=== PATIENT | female | born 1955 | race Caucasian/White ===

== ENCOUNTER 2017-08-06 09:50 | Outpatient (CLI) | payer MEDICARE, MEDICAID ==
--- NOTE | 2017-08-06 16:02 | EKG ---
Test Reason : SITTING UP IN CHAIR Blood Pressure : / mmHG Vent. Rate : 110 BPM Atrial Rate : 110 BPM P-R Int : 174 ms QRS Dur : 146 ms QT Int : 360 ms P-R-T Axes : 073 047 032 degrees QTc Int : 487 ms Sinus tachycardia Right bundle branch block Inferior infarct , age undetermined cannot be excluded Abnormal ECG Confirmed by JAMIE GUAN ([id number]) on 08/06/2017 4:02:02 PM Referred By: CAITLIN LICONA Confirmed By:JAMIE GUAN
== END 2017-08-06 09:51 | disposition home or self-care (01) ==
LOC: BICMAMMO 09:50
PROVIDERS: ATTEND Family Medicine
DX: Z12.31 Encounter for screening mammogram for malignant neoplasm of breast (principal)
CPT/HCPCS: 77063; 77067; 93005; 93010

== ENCOUNTER 2018-12-10 13:36 | Outpatient (CLI) | payer MEDICARE, MEDICAID ==
--- NOTE | 2018-12-10 14:09 | RAD ---
EXAM: Two views chest PROVIDED CLINICAL HISTORY: Dyspnea COMPARISON: 10/18/2017. FINDINGS: Cardiac silhouette and pulmonary vasculature are within normal limits. Linear densities are again se en in the region of the right middle lobe and lingula as well as in the right lower lobe likely likely related to areas of scarring. The nodular prominence of the hilar regions is overall similar t o prior studies on 01/06/2015 and 07/19/2015. There is been no other interval change. IMPRESSION: 1. Stable nodular prominence of the hilar regions bilaterally with similar appearance compared to julien dies in 2015 and 2014. 2. Stable areas of scarring within the lingula and right middle lobe as well as right lower lobe. 3. No acute cardiopulmonary process..
== END 2018-12-10 13:37 | disposition home or self-care (01) ==
LOC: RAD 13:36
PROVIDERS: ATTEND Internal Medicine Pulmonary Disease
DX: R06.00 Dyspnea, unspecified (principal); R91.1 Solitary pulmonary nodule; J98.4 Other disorders of lung
CPT/HCPCS: 71046

== ENCOUNTER 2019-04-12 16:16 | Inpatient (IN) | payer MEDICARE, MEDICAID ==
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
[2019-04-12] MEDS ORDERED: Zolpidem Tartrate 5 MG TAB PO PRN (18:41)
[2019-04-12] MEDS ORDERED: Sodium Chloride 0.65% Nasal 44 ML BOT EA NARE PRN (18:41)
[2019-04-12] MEDS ORDERED: hydrALAZINE 20 MG/ML VIAL SLOW IVP PRN (18:41)
[2019-04-12] MEDS ORDERED: Artificial Tears 18 DROP/0.9 ML EA EYE PRN (18:41)
[2019-04-12] MEDS ORDERED: HYDROcodone/Acetaminophen 5/325 mg Tablet PO PRN (18:41)
[2019-04-12] MEDS ORDERED: Loratadine 10 MG TAB PO PRN (18:41)
[2019-04-12] MEDS ORDERED: Bisacodyl 10 MG SUPP PR PRN (18:41)
[2019-04-12] MEDS ORDERED: Loperamide HCl 2 MG CAP PO PRN (18:41)
[2019-04-12] MEDS ORDERED: Calcium Carbonate 500 MG ChewTAB PO PRN (18:41)
[2019-04-12] MEDS ORDERED: Senokot S 8.6-50 MG TAB PO PRN (18:41)
[2019-04-12] MEDS ORDERED: Cepastat Lozenges 1 LOZ PO PRN (18:41)
[2019-04-12] MEDS ORDERED: cloNIDine 0.1 MG TAB PO PRN (18:41)
[2019-04-12] MEDS ORDERED: Metoclopramide HCl 10 MG/2 ML VIAL IVP PRN (18:41)
[2019-04-12 19:11] VITALS: BMI 41.6
[2019-04-12] MEDS ORDERED: Mometasone/Formoterol 120 PUFF INHALER INH SCH (19:15)
[2019-04-12] MEDS: Mometasone/Formoterol 120 PUFF INHALER INH SCH (20:12)
[2019-04-12] MEDS: guaiFENesin ER 600 MG TAB PO SCH (20:49)
[2019-04-12] MEDS: Azithromycin 500 MG in Sodium Chloride 0.9% 250 ML 250 ML IVPB SCH (20:49)
[2019-04-12] MEDS: ALPRAZolam 1 MG TAB PO PRN (20:57)
[2019-04-13] MEDS: Diabetic Tussin 200 MG/10 ML UDCUP PO PRN (06:17)
[2019-04-13] MEDS: Mometasone/Formoterol 120 PUFF INHALER INH SCH ×2 (06:53→18:54)
[2019-04-13 07:14] LABS: #Monocytes 0.9 thou/uL (0.11-0.59); #Neutrophils 11.6 thou/uL (1.40-6.50); %Eosinophils 0.2 % (0.0-10.0); %Lymphocytes 7.2 % (21.0-51.0); %Monocytes 6.9 % (0.0-10.0); %Neutrophils 85.7 % (42.0-75.0); Hemoglobin 11.2 g/dL (12.0-16.0); Mean Corpuscular HGB CONC 31.2 g/dL (32.0-36.0); Mean Corpuscular Hemoglobin 25.6 pg (27.0-31.0); Mean Platelet Volume 8.6 fL (7.4-10.4); Platelet Count 173 thou/uL (130-400); RBC Distribution Width 14.3 % (11.5-14.5); Red Blood Cell (RBC) Count 4.36 mill/uL (4.20-5.40); White Blood Cell (WBC) Count 13.6 thou/uL (4.8-10.8)
[2019-04-13 07:37] LABS: ALT (SGPT) 23 U/L (8-55); AST (SGOT) 15 U/L (5-34); Albumin 3.9 g/dL (3.4-4.8); Alkaline Phosphatase 97 U/L (40-110); Anion Gap 12 mmol/L (10-20); BUN (Urea Nitrogen) 18 mg/dL (9.8-20.1); Bilirubin, Total 0.3 mg/dL (0.2-1.2); Calc. Creatinine Clearance 111 mL/min (70-130); Calcium 9.2 mg/dL (7.8-10.44); Carbon Dioxide 30 mmol/L (23-31); Chloride 100 mmol/L (98-107); Estimated GFR-MDRD 67; Globulin 3.6 g/dL (2.4-3.5); Glucose 217 mg/dL (80-115); Potassium 4.2 mmol/L (3.5-5.1); Protein, Total 7.5 g/dL (6.0-8.3); Sodium 138 mmol/L (136-145)
[2019-04-13] MEDS: Enoxaparin Sodium 40 MG/0.4 ML SYRINGE SC SCH (08:27)
[2019-04-13] MEDS: Spironolactone 25 MG TAB PO SCH (08:28)
[2019-04-13] MEDS: Allopurinol 100 MG TAB PO SCH (08:28)
[2019-04-13] MEDS: guaiFENesin ER 600 MG TAB PO SCH ×2 (08:28→19:53)
[2019-04-13] MEDS ORDERED: ROFLUMILAST PO SCH ×2 (09:00)
[2019-04-13] MEDS ORDERED: FLU VACC TS2019-20(65YR UP)/PF 180 MCG/0.5 ML SYRINGE IM ONE (09:00)
--- NOTE | 2019-04-13 11:20 | PDOC.HOSPP ---
- Subjective Encounter Date: 04/13/19 Encounter Time: 09:15 Subjective: Patient seen and examined. No new complaints. No overnight events pt is slightly better than yesterday, but she does not feel her baseline - Objective Vital Signs & Weight: Vital Signs (12 hours) Temp Pulse Resp BP Pulse Ox 04/13/19 10:15 85 18 04/13/19 09:00 94/72 04/13/19 08:10 98.7 F 102 H 20 76/64 L 95 04/13/19 08:00 95 04/13/19 06:51 98 16 98 04/13/19 04:00 98.6 F 94 16 102/65 98 04/13/19 02:19 95 04/13/19 00:00 98.8 F 98 16 99/65 97 Weight Weight 235 lb I&O: 04/12/19 04/13/19 04/14/19 06:59 06:59 06:59 Intake Total 240 Balance 240 Result Diagrams: 04/13/19 06:32 04/13/19 06:32 Hospitalist ROS - Review of Systems Constitutional: denies: fever, chills, sweats, weakness, malaise, other Eyes: denies: pain, vision change, conjunctivae inflammation, eyelid inflammation, redness, other ENT: denies: ear pain, ear discharge, nose pain, nose discharge, nose congestion , mouth pain, mouth swelling, throat pain, throat swelling, other Respiratory: reports: cough, shortness of breath, SOB with excertion. denies: dry, hemoptysis, pleuritic pain, sputum, wheezing, other Cardiovascular: denies: chest pain, palpitations, orthopnea, paroxysmal noc. dyspnea, edema, light headedness, other Gastrointestinal: denies: nausea, vomiting, abdominal pain, diarrhea, constipation, melena, hematochezia, other Genitourinary: denies: dysuria, frequency, incontinence, hematuria, retention, other Musculoskeletal: denies: neck pain, shoulder pain, arm pain, back pain, hand pain, leg pain, foot pain, other Skin: denies: rash, lesions, zenon, bruising, other - Medication Medications: Active Medications Generic Name Dose Route Start Last Admin Trade Name Freq PRN Reason Stop Dose Admin Albuterol/Ipratropium 3 ml 04/12/19 22:30 04/13/19 10:15 Duoneb NEB 3 ml [id number] AXEL Administration Allopurinol 100 mg 04/13/19 09:00 04/13/19 08:28 Zyloprim PO 100 mg DAILY AXEL Administration Alprazolam 1 mg 04/12/19 18:41 04/12/19 20:57 Xanax PO 1 mg TIDPRN PRN Administration Anxiety/Restlessness/Sleep Cholecalciferol 2,000 units 04/13/19 09:00 04/13/19 08:28 Vitamin D3 PO 2,000 units DAILY AXEL Administration Enoxaparin Sodium 40 mg 04/13/19 09:00 04/13/19 08:27 Lovenox SC 40 mg 0900 AXEL Administration Guaifenesin 600 mg 04/12/19 21:00 04/13/19 08:28 Mucinex PO 600 mg Q12HR AXEL Administration Guaifenesin 200 mg 04/12/19 18:41 04/13/19 06:17 Robitussin Sf PO 200 mg Q4H PRN Administration Cough Azithromycin 500 mg/ Sodium 250 mls @ 250 mls/hr 04/12/19 20:00 04/12/19 20: 49 Chloride IVPB 250 mls 2000 AXEL Administration Mometasone Furoate/Formoterol Fumar 2 puff 04/13/19 06:30 04/13/19 06:53 Dulera 200 Mcg/5 Mcg Inhaler INH 2 puff BID-RT AXEL Administration Pantoprazole Sodium 40 mg 04/13/19 09:00 04/13/19 08:28 Protonix PO 40 mg DAILY AXEL Administration Spironolactone 50 mg 04/13/19 08:00 04/13/19 08:28 Aldactone PO 50 mg QAM-WM AXEL Administration - Exam General Appearance: NAD, awake alert Eye: PERRL, anicteric sclera ENT: normocephalic atraumatic, no oropharyngeal lesions Neck: supple, symmetric, no JVD, no thyromegaly Heart: RRR, no murmur, no gallops, no rubs, normal peripheral pulses Respiratory: wheezes Respiratory - other findings: bilateral reduced air entry Gastrointestinal: soft, non-tender, non-distended, normal bowel sounds, no palpable masses, no hepatomegaly, no guarding, no rigidity Gastrointestinal - other findings: obesity Extremities: no cyanosis, no clubbing, no edema Skin: normal turgor, no lesions, no rashes Neurological: cranial nerve grossly intact, no focal deficits Musculoskeletal: normal tone, normal strength Psychiatric: normal affect, normal behavior Hosp A/P (1) COPD exacerbation Code(s): J44.1 - CHRONIC OBSTRUCTIVE PULMONARY DISEASE W (ACUTE) EXACERBATION Status: Acute (2) Acute and chronic respiratory failure with hypoxia Code(s): J96.21 - ACUTE AND CHRONIC RESPIRATORY FAILURE WITH HYPOXIA Status: Acute (3) Morbid obesity with BMI of 40.0-44.9, adult Code(s): E66.01 - MORBID (SEVERE) OBESITY DUE TO EXCESS CALORIES; Z68.41 - BODY MASS INDEX (BMI) 40.0-44.9, ADULT Status: Acute (4) Gout Code(s): M10.9 - GOUT, UNSPECIFIED Status: Acute (5) Anxiety and depression Code(s): F41.9 - ANXIETY DISORDER, UNSPECIFIED; F32.9 - MAJOR DEPRESSIVE DISORDER, SINGLE EPISODE, UNSPECIFIED Status: Acute - Plan old records reviewed/req, continue antibiotics, respiratory therapy 04/13/19 pt wants her regular diet continue duoneb, dulera, solumedrol, mucinex, azithromycin Medication reviewed as above, symptomatic treatment
[2019-04-13 11:21] LABS: Bilirubin Negative (Negative); Blood, Urine Negative (Negative); Clarity Clear (Clear); Glucose, Urine (Dipstick) 100 mg/dL (Negative); Leukocyte Negative Leu/uL (Negative); Nitrite Negative (Negative); Protein, Urine (Dipstick) 20 mg/dL (Neg-Trace); RBC/HPF 0-3 HPF (0-3); Squamous Epithelial 0-3 HPF (0-3); Urobilinogen Normal mg/dL (Less than 2); WBC/HPF 0-3 HPF (0-3)
[2019-04-13 11:22] LABS: Bacteria/HPF 1+ HPF (None Seen)
[2019-04-13] MEDS: Azithromycin 500 MG in Sodium Chloride 0.9% 250 ML 250 ML IVPB SCH (19:52)
[2019-04-14] MEDS: Diabetic Tussin 200 MG/10 ML UDCUP PO PRN ×2 (01:31→17:25)
[2019-04-14] MEDS: Acetaminophen 325 MG TAB PO PRN (01:31)
[2019-04-14] MEDS: Mometasone/Formoterol 120 PUFF INHALER INH SCH ×2 (06:27→19:01)
[2019-04-14] MEDS: Enoxaparin Sodium 40 MG/0.4 ML SYRINGE SC SCH (08:19)
[2019-04-14] MEDS: guaiFENesin ER 600 MG TAB PO SCH ×2 (08:20→19:54)
[2019-04-14] MEDS: Allopurinol 100 MG TAB PO SCH (08:20)
[2019-04-14] MEDS: Spironolactone 25 MG TAB PO SCH (08:20)
--- NOTE | 2019-04-14 11:55 | PDOC.HOSPP ---
- Subjective Encounter Date: 04/14/19 Encounter Time: 10:10 Subjective: Patient seen and examined. No new complaints. No overnight events - Objective Vital Signs & Weight: Vital Signs (12 hours) Temp Pulse Resp BP Pulse Ox Pulse Ox Pulse Ox 04/14/19 10:34 95 88 L 04/14/19 09:59 89 18 96 04/14/19 08:00 94 L 04/14/19 07:54 98.5 F 90 22 H 95/65 94 L 04/14/19 06:24 80 18 97 04/14/19 04:00 98.3 F 85 19 98/66 97 04/14/19 00:00 98.5 F 94 19 104/69 93 L Pulse Ox 04/14/19 10:34 93 L 04/14/19 09:59 04/14/19 08:00 04/14/19 07:54 04/14/19 06:24 04/14/19 04:00 04/14/19 00:00 Weight Admit Weight 235 lb Weight 235 lb I&O: 04/13/19 04/14/19 04/15/19 06:59 06:59 06:59 Intake Total 840 360 Balance 840 360 Result Diagrams: 04/13/19 06:32 04/13/19 06:32 Hospitalist ROS - Review of Systems Eyes: denies: pain, vision change, conjunctivae inflammation, eyelid inflammation, redness, other ENT: denies: ear pain, ear discharge, nose pain, nose discharge, nose congestion , mouth pain, mouth swelling, throat pain, throat swelling, other Respiratory: reports: cough, shortness of breath. denies: dry, hemoptysis, SOB with excertion, pleuritic pain, sputum, wheezing, other Cardiovascular: denies: chest pain, palpitations, orthopnea, paroxysmal noc. dyspnea, edema, light headedness, other Gastrointestinal: denies: nausea, vomiting, abdominal pain, diarrhea, constipation, melena, hematochezia, other Genitourinary: denies: dysuria, frequency, incontinence, hematuria, retention, other Musculoskeletal: denies: neck pain, shoulder pain, arm pain, back pain, hand pain, leg pain, foot pain, other Skin: reports: rash. denies: lesions, zenon, bruising, other - Medication Medications: Active Medications Generic Name Dose Route Start Last Admin Trade Name Freq PRN Reason Stop Dose Admin Acetaminophen 650 mg 04/12/19 18:41 04/14/19 01:31 Tylenol PO 650 mg Q4H PRN Administration Headache/Fever/Mild Pain (1-3) Albuterol/Ipratropium 3 ml 04/12/19 22:30 04/14/19 09:59 Duoneb NEB 3 ml [id number] AXEL Administration Allopurinol 100 mg 04/13/19 09:00 04/14/19 08:20 Zyloprim PO 100 mg DAILY AXEL Administration Alprazolam 1 mg 04/12/19 18:41 04/12/19 20:57 Xanax PO 1 mg TIDPRN PRN Administration Anxiety/Restlessness/Sleep Cholecalciferol 2,000 units 04/13/19 09:00 04/14/19 08:19 Vitamin D3 PO 2,000 units DAILY AXEL Administration Enoxaparin Sodium 40 mg 04/13/19 09:00 04/14/19 08:19 Lovenox SC 40 mg 0900 AXEL Administration Guaifenesin 600 mg 04/12/19 21:00 04/14/19 08:20 Mucinex PO 600 mg Q12HR AXEL Administration Guaifenesin 200 mg 04/12/19 18:41 04/14/19 01:31 Robitussin Sf PO 200 mg Q4H PRN Administration Cough Azithromycin 500 mg/ Sodium 250 mls @ 250 mls/hr 04/12/19 20:00 04/13/19 19: 52 Chloride IVPB 250 mls 2000 AXEL Administration Metoclopramide HCl 5 mg 04/12/19 18:41 04/13/19 20:19 Reglan IVP 5 mg Q4H PRN Administration Nausea Mometasone Furoate/Formoterol Fumar 2 puff 04/13/19 06:30 04/14/19 06:27 Dulera 200 Mcg/5 Mcg Inhaler INH 2 puff BID-RT AXEL Administration Pantoprazole Sodium 40 mg 04/13/19 09:00 04/14/19 08:20 Protonix PO 40 mg DAILY AXEL Administration Spironolactone 50 mg 04/13/19 08:00 04/14/19 08:20 Aldactone PO 50 mg QAM-WM AXEL Administration - Exam General Appearance: NAD, awake alert Eye: PERRL, anicteric sclera ENT: normocephalic atraumatic, no oropharyngeal lesions Neck: supple, symmetric, no JVD Heart: RRR, no murmur, no gallops Respiratory: no rales, wheezes Gastrointestinal: soft, non-tender, non-distended, normal bowel sounds, no palpable masses Extremities: no cyanosis, no clubbing Skin: normal turgor, no lesions Skin - other findings: tinea rash+ Neurological: no focal deficits Musculoskeletal: normal tone, normal strength Psychiatric: normal affect, normal behavior Hosp A/P (1) COPD exacerbation Code(s): J44.1 - CHRONIC OBSTRUCTIVE PULMONARY DISEASE W (ACUTE) EXACERBATION Status: Acute (2) Acute and chronic respiratory failure with hypoxia Code(s): J96.21 - ACUTE AND CHRONIC RESPIRATORY FAILURE WITH HYPOXIA Status: Acute (3) Morbid obesity with BMI of 40.0-44.9, adult Code(s): E66.01 - MORBID (SEVERE) OBESITY DUE TO EXCESS CALORIES; Z68.41 - BODY MASS INDEX (BMI) 40.0-44.9, ADULT Status: Acute (4) Gout Code(s): M10.9 - GOUT, UNSPECIFIED Status: Acute (5) Anxiety and depression Code(s): F41.9 - ANXIETY DISORDER, UNSPECIFIED; F32.9 - MAJOR DEPRESSIVE DISORDER, SINGLE EPISODE, UNSPECIFIED Status: Acute - Plan old records reviewed/req, continue antibiotics, respiratory therapy 04/13/19 pt wants her regular diet continue duoneb, dulera, solumedrol, mucinex, azithromycin Medication reviewed as above, symptomatic treatment 04/14/19 add nystatin for skin rash otherwise continue same treatment not stable for discharge and not upto her base line medication reviewed as above symptomatic treatment
[2019-04-14] MEDS: methylPREDNISolone Sod Succ 40 MG VIAL IVP SCH ×2 (12:17→19:54)
[2019-04-14] MEDS: Azithromycin 500 MG in Sodium Chloride 0.9% 250 ML 250 ML IVPB SCH (19:53)
[2019-04-14] MEDS: Nystatin Powder 15 GM BOT TOP SCH (19:54)
[2019-04-14] MEDS: ALPRAZolam 1 MG TAB PO PRN (21:35)
[2019-04-15] MEDS: methylPREDNISolone Sod Succ 40 MG VIAL IVP SCH (04:07)
[2019-04-15] MEDS: Mometasone/Formoterol 120 PUFF INHALER INH SCH ×2 (06:58→18:51)
[2019-04-15] MEDS: Enoxaparin Sodium 40 MG/0.4 ML SYRINGE SC SCH (08:42)
[2019-04-15] MEDS: Allopurinol 100 MG TAB PO SCH (08:43)
[2019-04-15] MEDS: Spironolactone 25 MG TAB PO SCH (08:43)
[2019-04-15] MEDS: guaiFENesin ER 600 MG TAB PO SCH ×2 (08:45→20:41)
[2019-04-15] MEDS: Nystatin Powder 15 GM BOT TOP SCH ×2 (08:46→20:41)
--- NOTE | 2019-04-15 11:06 | PDOC.HOSPP ---
- Subjective Encounter Date: 04/15/19 Encounter Time: 11:04 Subjective: much less dyspnea, near ready to go home - Objective Vital Signs & Weight: Vital Signs (12 hours) Temp Pulse Resp BP BP Pulse Ox 04/15/19 10:34 99 22 H 93 L 04/15/19 07:52 97.4 F L 89 22 H 124/78 94 L 04/15/19 06:50 93 18 95 04/15/19 04:15 98.2 F 93 22 H 117/74 95 04/15/19 01:40 96 18 04/15/19 01:01 98.6 F 96 19 98/63 94 L Weight Admit Weight 235 lb Weight 235 lb I&O: 04/14/19 04/15/19 04/16/19 06:59 06:59 06:59 Intake Total 840 1080 360 Balance 840 1080 360 Result Diagrams: 04/13/19 06:32 04/13/19 06:32 Hospitalist ROS - Medication Medications: Active Medications Generic Name Dose Route Start Last Admin Trade Name Freq PRN Reason Stop Dose Admin Acetaminophen 650 mg 04/12/19 18:41 04/14/19 01:31 Tylenol PO 650 mg Q4H PRN Administration Headache/Fever/Mild Pain (1-3) Albuterol/Ipratropium 3 ml 04/12/19 22:30 04/15/19 10:34 Duoneb NEB 3 ml [id number] AXEL Administration Allopurinol 100 mg 04/13/19 09:00 04/15/19 08:43 Zyloprim PO 100 mg DAILY AXEL Administration Alprazolam 1 mg 04/12/19 18:41 04/14/19 21:35 Xanax PO 1 mg TIDPRN PRN Administration Anxiety/Restlessness/Sleep Cholecalciferol 2,000 units 04/13/19 09:00 04/15/19 08:43 Vitamin D3 PO 2,000 units DAILY AXEL Administration Enoxaparin Sodium 40 mg 04/13/19 09:00 04/15/19 08:42 Lovenox SC 40 mg 0900 AXEL Administration Guaifenesin 600 mg 04/12/19 21:00 04/15/19 08:45 Mucinex PO 600 mg Q12HR AXEL Administration Guaifenesin 200 mg 04/12/19 18:41 04/14/19 17:25 Robitussin Sf PO 200 mg Q4H PRN Administration Cough Metoclopramide HCl 5 mg 04/12/19 18:41 04/13/19 20:19 Reglan IVP 5 mg Q4H PRN Administration Nausea Mometasone Furoate/Formoterol Fumar 2 puff 04/13/19 06:30 04/15/19 06:58 Dulera 200 Mcg/5 Mcg Inhaler INH 2 puff BID-RT AXEL Administration Nystatin 0 gm 04/14/19 21:00 04/15/19 08:46 Mycostatin Powder TOP 1 applic BID AXEL Administration Pantoprazole Sodium 40 mg 04/13/19 09:00 04/15/19 08:45 Protonix PO 40 mg DAILY AXEL Administration Spironolactone 50 mg 04/13/19 08:00 04/15/19 08:43 Aldactone PO 50 mg QAM-WM AXEL Administration - Exam Neck: no JVD Heart: RRR, no murmur Respiratory: CTAB Gastrointestinal: soft, normal bowel sounds Extremities: no edema Hosp A/P (1) Acute and chronic respiratory failure with hypoxia Code(s): J96.21 - ACUTE AND CHRONIC RESPIRATORY FAILURE WITH HYPOXIA Status: Acute (2) COPD exacerbation Code(s): J44.1 - CHRONIC OBSTRUCTIVE PULMONARY DISEASE W (ACUTE) EXACERBATION Status: Acute (3) HTN (hypertension) Code(s): I10 - ESSENTIAL (PRIMARY) HYPERTENSION Status: Chronic Qualifiers: Hypertension type: essential hypertension Qualified Code(s): I10 - Essential (primary) hypertension (4) Dyslipidemia Code(s): E78.5 - HYPERLIPIDEMIA, UNSPECIFIED Status: Chronic - Plan deescalate steroids to po deescalate antibx to po probable home in AM with HH, outpt pulmonary rehab as outpt, already arranged
[2019-04-15] MEDS: Acetaminophen 325 MG TAB PO PRN (19:09)
[2019-04-15] MEDS ORDERED: Azithromycin 250 MG TAB PO SCH (21:00)
[2019-04-15] MEDS: ALPRAZolam 1 MG TAB PO PRN (23:05)
[2019-04-15] MEDS: Diabetic Tussin 200 MG/10 ML UDCUP PO PRN (23:05)
[2019-04-16] MEDS: Mometasone/Formoterol 120 PUFF INHALER INH SCH (07:11)
[2019-04-16 07:21] VITALS: BP 116/77; TEMP 97.3
[2019-04-16] MEDS ORDERED: predniSONE 20 MG TAB PO SCH (08:00)
[2019-04-16] MEDS: Allopurinol 100 MG TAB PO SCH (08:22)
[2019-04-16] MEDS: Enoxaparin Sodium 40 MG/0.4 ML SYRINGE SC SCH (08:24)
[2019-04-16] MEDS: guaiFENesin ER 600 MG TAB PO SCH (08:24)
[2019-04-16] MEDS: Spironolactone 25 MG TAB PO SCH (08:24)
[2019-04-16] MEDS: Nystatin Powder 15 GM BOT TOP SCH (08:25)
[2019-04-16] MEDS ORDERED: Azithromycin 250 MG TAB PO SCH (09:00)
--- NOTE | 2019-04-16 20:48 | DIS ---
DATE OF ADMISSION: 04/12/2019 DATE OF DISCHARGE: 04/16/2019 PRIMARY CARE PROVIDER: Dr. Sixto Bedolla. DISCHARGE DIAGNOSES: 1. Acute on chronic hypoxic respiratory failure. 2. Chronic obstructive pulmonary disease exacerbation. CONDITION OF PATIENT ON THE DAY OF DISCHARGE: Stable. I assessed Ms. Holt on the day of discharge. She denies any chest pain or shortness of breath. Vital signs are stable. S1 and S2 are heard, regular. Lungs are clear to auscultation bilaterally. HOSPITAL COURSE: Ms. Holt is a pleasant 63-year-old lady, who was admitted to [facility] on 04/12/2019, for acute on chronic hypoxic respiratory failure secondary to chronic obstructive pulmonary disease exacerbation. Please refer to Dr. French's history and physical note dated 04/12/2019, for further details. She was treated with oxygen, steroids, antibiotics, and bronchodilators. She improved clinically. She is being discharged home in a stable condition. POST-DISCHARGE FOLLOWUP: The patient is advised to follow up with her primary care provider in 3 to 5 days' time. DISCHARGE MEDICATIONS: In addition to her home medications as dictated by Dr. French in his history and physical note dated 04/12/2019, she is being discharged home on oral steroid taper and azithromycin 250 mg daily for 5 more days. Many thanks for allowing me to participate in your patient's care. Please feel free to contact me with any questions or concerns. DISCHARGE DESTINATION: Home. TIME SPENT: Total amount of time spent coordinating this discharge: 32 minutes. Job ID: [id number]
== END 2019-04-16 15:52 | disposition home or self-care (01) | DRG 189 ==
LOC: ERS 16:16 → T4-B 17:11
PROVIDERS: ADMIT Internal Medicine; ATTEND Internal Medicine
DX: J96.21 Acute and chronic respiratory failure with hypoxia (principal); Z68.41 Body mass index [BMI] 40.0-44.9, adult; J44.1 Chronic obstructive pulmonary disease with (acute) exacerbation; I10 Essential (primary) hypertension; M10.9 Gout, unspecified; K21.9 Gastro-esophageal reflux disease without esophagitis; F41.9 Anxiety disorder, unspecified; F32.9 Major depressive disorder, single episode, unspecified; E66.01 Morbid (severe) obesity due to excess calories; Z99.81 Dependence on supplemental oxygen; Z90.49 Acquired absence of other specified parts of digestive tract; Z79.899 Other long term (current) drug therapy
CPT/HCPCS: 36415; 80053; 81001; 85025; 90471; 90662; 93005; 94640; 94664; 94760; G0008; J0456; J1650; J2765; J2920; J7050; J7512; J7620

== ENCOUNTER 2019-04-21 16:58 | Emergency (ER) | payer MEDICARE, MEDICAID ==
[~2019-04-21 16:58] MED LIST: Iopamidol 370 76% 100 ML VIAL ONE
--- NOTE | 2019-04-21 17:38 | RAD ---
EXAM: Single view of the chest HISTORY: Tachycardia COMPARISON: 04/12/2019 FINDINGS: Single view of the chest shows an enlarged but stable cardiomediastinal silhouette. Linear atelectasis is seen in the lung bases. There is no evidence of consolidation, mass, or pleural effusion. The bones are unremarkable. IMPRESSION: No evidence of acute cardiopulmonary disease
[2019-04-21 17:45] LABS: Hemoglobin 12.7 g/dL (12.0-16.0); Mean Corpuscular Hemoglobin 25.5 pg (27.0-31.0); Mean Corpuscular Volume 79.5 fL (78.0-98.0); Mean Platelet Volume 8.7 fL (7.4-10.4); Platelet Count 224 thou/uL (130-400); White Blood Cell (WBC) Count 21.6 thou/uL (4.8-10.8)
[2019-04-21 17:59] LABS: Anisocytosis SLIGHT = 6-15 cells (100X) (0-5/hpf); Band 6 % (5-11); Eosinophils 1 % (0-10); Hypochromia SLIGHT = 6-15 cells (100X) (0-5/hpf); Lymphocytes 10 % (21-51); MDiff Complete? YES; Monocytes 3 % (0-10); Neutrophil 80 % (42-75); Ovalocytes SLIGHT = 2-5 cells (100X) (0-1/hpf); Platelet Morphology Comment Appears Adequate; Polychromasia SLIGHT = 2-3 cells (100X) (0-2/hpf)
[2019-04-21 18:06] LABS: ALT (SGPT) 36 U/L (8-55); AST (SGOT) 19 U/L (5-34); Albumin 4.2 g/dL (3.4-4.8); Alkaline Phosphatase 88 U/L (40-110); Anion Gap 17 mmol/L (10-20); BUN (Urea Nitrogen) 24 mg/dL (9.8-20.1); Bilirubin, Total 0.3 mg/dL (0.2-1.2); CK (CPK) 35 U/L (29-168); Calc. Creatinine Clearance 0 mL/min (70-130); Calcium 9.7 mg/dL (7.8-10.44); Carbon Dioxide 27 mmol/L (23-31); Chloride 99 mmol/L (98-107); Estimated GFR-MDRD 67; Globulin 3.4 g/dL (2.4-3.5); Glucose 152 mg/dL (80-115); Potassium 4.2 mmol/L (3.5-5.1); Protein, Total 7.6 g/dL (6.0-8.3); Sodium 139 mmol/L (136-145)
--- NOTE | 2019-04-21 19:07 | CT ---
EXAM: CTA of the chest HISTORY: Tachycardia and shortness of breath COMPARISON: None TECHNIQUE: Multiple contiguous axial images were obtained a CTA of the chest with contrast per pulmon nicole embolism protocol. 3-D oblique MIP reformats and direct coronal reformats were performed. FINDINGS: HEART: Normal in size without focal cardiac abnormality. PULMONARY ARTERIES: Normal in caliber without filling defects to suggest pulmonary emboli. MEDIASTINUM: No hilar or mediastinal lymphadenopathy. LUNGS: No focal infiltrates or masses. PLEURAL SPACE: No pleural effusion or pneumothorax. CHEST WALL SOFT TISSUES: Unremarkable VISUALIZED OSSEOUS STRUCTURES: Unremarkable VISUALIZED SUBDIAPHRAGMATIC STRUCTURES: Unremarkable IMPRESSION: No evidence of pulmonary thromboembolism
== END 2019-04-21 19:56 | disposition home or self-care (01) ==
LOC: ERS 16:58
DX: R00.0 Tachycardia, unspecified (principal); M10.9 Gout, unspecified; J44.9 Chronic obstructive pulmonary disease, unspecified; F41.9 Anxiety disorder, unspecified; F32.9 Major depressive disorder, single episode, unspecified; Z79.899 Other long term (current) drug therapy; Z79.51 Long term (current) use of inhaled steroids
CPT/HCPCS: 71045; 71275; 80053; 82550; 83880; 84484; 85025; 93005; 96360; Q9967

== ENCOUNTER 2019-08-13 11:39 | Outpatient (CLI) | payer MEDICARE, MEDICAID ==
--- NOTE | 2019-08-13 12:02 | RAD ---
EXAM: Two views chest PROVIDED CLINICAL HISTORY: Elevated heart rate. COMPARISON: 04/21/2019 FINDINGS: Cardiac silhouette is at the upper limits of normal. Pulmonary vasculature is within normal limits. T here are linear densities again seen in the midlung zones bilaterally, mildly increased from prior study, which may represent atelectasis and/or scarring. Minimal linear densities are also seen at eac h lung base and right upper lung zone laterally. No other interval change. IMPRESSION: Findings likely due to increase in atelectasis midlung zones bilaterally. Associated mild scarring is a possibility. There is otherwise no acute cardiopulmonary process..
== END 2019-08-13 11:40 | disposition home or self-care (01) ==
LOC: BICRAD 11:39
PROVIDERS: ATTEND Family Medicine
DX: J40 Bronchitis, not specified as acute or chronic (principal)
CPT/HCPCS: 36415; 71046; 80053; 80061; 84550; 85025

== ENCOUNTER 2021-07-31 15:47 | Inpatient (IN) | payer MEDICARE, MEDICAID ==
[2021-07-31 16:47] LABS: #Eosinphils 0.1 thou/uL (0.0-0.7); #Lymphocytes 1.3 thou/uL (1.20-3.40); #Monocytes 0.7 thou/uL (0.11-0.59); #Neutrophils 5.8 thou/uL (1.40-6.50); %Basophils 0.1 % (0.0-1.0); %Eosinophils 1.5 % (0.0-10.0); %Lymphocytes 15.9 % (21.0-51.0); %Monocytes 9.1 % (0.0-10.0); %Neutrophils 73.3 % (42.0-75.0)
[2021-07-31 16:48] LABS: Hemoglobin 6.9 g/dL (12.0-16.0); Mean Corpuscular HGB CONC 28.3 g/dL (32.0-36.0); Mean Corpuscular Volume 67.1 fL (78.0-98.0); Mean Platelet Volume 6.3 fL (7.4-10.4); Platelet Count 167 thou/uL (130-400); RBC Distribution Width 16.9 % (11.5-14.5); Red Blood Cell (RBC) Count 3.62 mill/uL (4.20-5.40); White Blood Cell (WBC) Count 7.9 thou/uL (4.8-10.8)
[2021-07-31 16:51] LABS: ALT (SGPT) 17 U/L (8-55); AST (SGOT) 15 U/L (5-34); Albumin 3.8 g/dL (3.4-4.8); Alkaline Phosphatase 79 U/L (40-110); Anion Gap 10 mmol/L (10-20); BUN (Urea Nitrogen) 14 mg/dL (9.8-20.1); Bilirubin, Total 0.3 mg/dL (0.2-1.2); Calc. Creatinine Clearance 0 mL/min (70-130); Calcium 9.2 mg/dL (7.8-10.44); Carbon Dioxide 36 mmol/L (23-31); Chloride 98 mmol/L (98-107); Globulin 3.5 g/dL (2.4-3.5); Glucose 203 mg/dL (80-115); Potassium 3.7 mmol/L (3.5-5.1); Protein, Total 7.3 g/dL (5.8-8.1); Sodium 140 mmol/L (136-145)
[2021-07-31 17:50] LABS: INR-International Normal Ratio 1.1; PTT 28.5 sec (22.9-36.1)
[2021-07-31] MEDS ORDERED: Pantoprazole 40 MG VIAL ONE ×2 (18:17→18:23)
[2021-07-31 18:19] LABS: Iron Binding Capacity, Total 556 mcg/dL (265-497)
[2021-07-31 19:13] LABS: Iron 14 ug/dL (50-170)
[2021-07-31] MEDS ORDERED: Ondansetron ODT 4 MG TAB SL PRN (20:45)
[2021-07-31] MEDS ORDERED: Ondansetron PF 4 MG/2 ML Vial IVP PRN (20:45)
[2021-07-31] MEDS ORDERED: Lactated Ringer's 1,000 ML IV SCH (20:45)
[2021-07-31] MEDS ORDERED: Acetaminophen 650 MG Suppository PR PRN (21:43)
[2021-07-31 21:53] VITALS: BMI 44.1
[2021-07-31] MEDS ORDERED: Iron, Sodium Ferric Gluconate 250 MG in Sodium Chloride 0.9% 250 ML 250 ML IVPB SCH (22:00)
[2021-07-31] MEDS: ALPRAZolam 0.5 MG TAB PO SCH (23:39)
[2021-07-31] MEDS: Sodium Chloride 0.9% 1,000 ML IV SCH (23:41)
[2021-08-01] MEDS: Acetaminophen 325 MG TAB PO PRN ×4 (03:23→19:09)
[2021-08-01 04:47] LABS: #Eosinphils 0.1 thou/uL (0.0-0.7); #Lymphocytes 1.1 thou/uL (1.20-3.40); #Monocytes 0.8 thou/uL (0.11-0.59); #Neutrophils 5.4 thou/uL (1.40-6.50); %Basophils 0.3 % (0.0-1.0); %Eosinophils 1.4 % (0.0-10.0); %Lymphocytes 14.2 % (21.0-51.0); %Monocytes 10.5 % (0.0-10.0); %Neutrophils 73.6 % (42.0-75.0); Hemoglobin 6.4 g/dL (12.0-16.0); Mean Corpuscular HGB CONC 27.7 g/dL (32.0-36.0); Mean Corpuscular Hemoglobin 19.1 pg (27.0-31.0); Mean Corpuscular Volume 68.7 fL (78.0-98.0); Platelet Count 146 thou/uL (130-400); RBC Distribution Width 16.8 % (11.5-14.5); Red Blood Cell (RBC) Count 3.38 mill/uL (4.20-5.40); White Blood Cell (WBC) Count 7.4 thou/uL (4.8-10.8)
[2021-08-01 05:07] LABS: Anion Gap 8 mmol/L (10-20); BUN (Urea Nitrogen) 11 mg/dL (9.8-20.1); Calc. Creatinine Clearance 141 mL/min (70-130); Calcium 8.6 mg/dL (7.8-10.44); Carbon Dioxide 35 mmol/L (23-31); Chloride 100 mmol/L (98-107); Glucose 146 mg/dL (80-115); Potassium 3.9 mmol/L (3.5-5.1); Sodium 139 mmol/L (136-145)
[2021-08-01] MEDS: ALPRAZolam 0.5 MG TAB PO SCH ×3 (05:15→13:26)
[2021-08-01] MEDS: Mometasone 100 MCG/PUFF (1 INHALER) INH SCH ×3 (07:51→18:48)
[2021-08-01] MEDS ORDERED: Enoxaparin Sodium 40 MG/0.4 ML SYRINGE SC SCH (09:00)
[2021-08-01] MEDS: Pantoprazole 40 MG VIAL IVP SCH ×2 (09:42→21:01)
[2021-08-01] MEDS: Sodium Chloride 0.9% 1,000 ML IV SCH ×3 (09:45→21:08)
[2021-08-01 13:15] LABS: SARS-CoV-2 PCR by NAA Not Detected (NotDetected)
[2021-08-01] MEDS ORDERED: Albuterol 200 PUFF (6.7GM INHALER) INH PRN (14:51)
[2021-08-01 15:13] LABS: Hemoglobin 6.3 g/dL (12.0-16.0); Platelet Count 159 thou/uL (130-400)
[2021-08-01] MEDS ORDERED: EPINEPHrine 1 MG/ML AMP IVP PRN (19:21)
[2021-08-01] MEDS ORDERED: diphenhydrAMINE 50 MG/ML VIAL IVP SCH (19:30)
[2021-08-01] MEDS ORDERED: Furosemide 20 MG/2 ML VIAL IVP SCH (21:00)
[2021-08-01] MEDS: ALPRAZolam 0.5 MG TAB PO PRN (21:01)
[2021-08-01 22:26] LABS: Hemoglobin 6.6 g/dL (12.0-16.0); Platelet Count 141 thou/uL (130-400)
[2021-08-02] MEDS: HYDROcodone/Acetaminophen 5/325 mg Tablet PO PRN ×3 (03:19→17:50)
[2021-08-02 05:22] LABS: Hemoglobin 7.4 g/dL (12.0-16.0); Platelet Count 144 thou/uL (130-400)
[2021-08-02 05:52] LABS: ALT (SGPT) 15 U/L (8-55); AST (SGOT) 19 U/L (5-34); Albumin 3.5 g/dL (3.4-4.8); Alkaline Phosphatase 82 U/L (40-110); Anion Gap 16 mmol/L (10-20); BUN (Urea Nitrogen) 6 mg/dL (9.8-20.1); Bilirubin, Total 0.5 mg/dL (0.2-1.2); Calc. Creatinine Clearance 146 mL/min (70-130); Calcium 8.7 mg/dL (7.8-10.44); Carbon Dioxide 26 mmol/L (23-31); Chloride 103 mmol/L (98-107); Globulin 3.4 g/dL (2.4-3.5); Glucose 109 mg/dL (80-115); Magnesium 1.6 mg/dL (1.6-2.6); Phosphorus 3.5 mg/dL (2.3-4.7); Protein, Total 6.9 g/dL (5.8-8.1); Sodium 141 mmol/L (136-145)
[2021-08-02] MEDS: Acetaminophen 325 MG TAB PO PRN (06:21)
[2021-08-02] MEDS: Mometasone 100 MCG/PUFF (1 INHALER) INH SCH ×2 (07:34→20:03)
[2021-08-02 08:18] LABS: Hemoglobin 7.2 g/dL (12.0-16.0); Platelet Count 135 thou/uL (130-400)
[2021-08-02] MEDS ORDERED: Lidocaine 1% PF 5 ML VIAL ONE (10:46)
[2021-08-02] MEDS ORDERED: PROPOFOL 200 MG/20 ML VIAL ONE (10:46)
[2021-08-02] MEDS: Pantoprazole 40 MG VIAL IVP SCH (11:50)
[2021-08-02] MEDS: Sodium Chloride 0.9% 1,000 ML IV SCH (15:15)
[2021-08-02 15:36] LABS: Platelet Count 134 thou/uL (130-400)
[2021-08-02] MEDS ORDERED: EPINEPHrine 1 MG/ML AMP IVP PRN (16:52)
[2021-08-02] MEDS ORDERED: GoLYTELY 4,000 ml Bottle PO SCH (17:00)
[2021-08-02] MEDS ORDERED: diphenhydrAMINE 50 MG/ML VIAL IVP SCH (17:00)
[2021-08-02] MEDS: Famotidine 20 MG TAB PO SCH (21:46)
[2021-08-02] MEDS: ALPRAZolam 0.5 MG TAB PO PRN (21:47)
[2021-08-03] MEDS: HYDROcodone/Acetaminophen 5/325 mg Tablet PO PRN ×3 (00:41→20:43)
[2021-08-03] MEDS: Sodium Chloride 0.9% 1,000 ML IV SCH ×2 (03:08→11:17)
[2021-08-03 05:18] LABS: BUN (Urea Nitrogen) 7 mg/dL (9.8-20.1); Calc. Creatinine Clearance 148 mL/min (70-130); Calcium 8.7 mg/dL (7.8-10.44); Glucose 99 mg/dL (80-115)
[2021-08-03 05:26] LABS: #Eosinphils 0.1 thou/uL (0.0-0.7); #Monocytes 0.6 thou/uL (0.11-0.59); %Basophils 0.1 % (0.0-1.0); %Eosinophils 1.4 % (0.0-10.0); %Lymphocytes 14.6 % (21.0-51.0); %Monocytes 9.4 % (0.0-10.0); %Neutrophils 74.4 % (42.0-75.0); Hemoglobin 7.6 g/dL (12.0-16.0); Mean Corpuscular HGB CONC 28.3 g/dL (32.0-36.0); Mean Corpuscular Hemoglobin 20.6 pg (27.0-31.0); Mean Corpuscular Volume 72.8 fL (78.0-98.0); Mean Platelet Volume 6.9 fL (7.4-10.4); Platelet Count 123 thou/uL (130-400); RBC Distribution Width 19.9 % (11.5-14.5); White Blood Cell (WBC) Count 6.7 thou/uL (4.8-10.8)
[2021-08-03 05:27] LABS: Anion Gap 20 mmol/L (10-20); Carbon Dioxide 27 mmol/L (23-31); Chloride 101 mmol/L (98-107); Potassium 3.6 mmol/L (3.5-5.1); Sodium 144 mmol/L (136-145)
[2021-08-03] MEDS: Mometasone 100 MCG/PUFF (1 INHALER) INH SCH ×2 (08:15→23:43)
[2021-08-03] MEDS ORDERED: PROPOFOL 200 MG/20 ML VIAL ONE (08:44)
[2021-08-03] MEDS ORDERED: Lidocaine 1% PF 5 ML VIAL ONE (08:44)
[2021-08-03] MEDS ORDERED: Fentanyl 250 MCG/5 ML VIAL ONE (09:33)
[2021-08-03] MEDS: Famotidine 20 MG TAB PO SCH ×2 (10:29→20:44)
[2021-08-03] MEDS ORDERED: Iron, Sodium Ferric Gluconate 250 MG in Sodium Chloride 0.9% 250 ML 250 ML IVPB SCH (17:00)
[2021-08-03] MEDS: ALPRAZolam 0.5 MG TAB PO PRN (23:19)
[2021-08-04] MEDS: HYDROcodone/Acetaminophen 5/325 mg Tablet PO PRN ×2 (03:28→12:35)
[2021-08-04 06:31] LABS: Hemoglobin 7.8 g/dL (12.0-16.0)
[2021-08-04] MEDS: Mometasone 100 MCG/PUFF (1 INHALER) INH SCH (08:21)
[2021-08-04] MEDS: Famotidine 20 MG TAB PO SCH (09:54)
[2021-08-04 12:26] VITALS: BP 120/69; TEMP 98.5
== END 2021-08-04 15:45 | disposition home health service (06) | DRG 378 ==
LOC: ERS 15:47 → 2NO 18:59 → T4-B 08-03 21:59
PROVIDERS: ADMIT Hospitalist; ATTEND Family Medicine
PROC: 30233P1 Transfusion of Nonautologous Frozen Red Cells into Peripheral Vein, Percutaneous Approach (ICD-10-PCS; 2021-07-31)
PROC: 0DJ08ZZ Inspection of Upper Intestinal Tract, Via Natural or Artificial Opening Endoscopic (ICD-10-PCS; 2021-08-02)
PROC: 0W3P8ZZ Control Bleeding in Gastrointestinal Tract, Via Natural or Artificial Opening Endoscopic (ICD-10-PCS; principal; 2021-08-03)
PROC: 0DBK8ZX Excision of Ascending Colon, Via Natural or Artificial Opening Endoscopic, Diagnostic (ICD-10-PCS; 2021-08-03)
PROC: 0DBN8ZX Excision of Sigmoid Colon, Via Natural or Artificial Opening Endoscopic, Diagnostic (ICD-10-PCS; 2021-08-03)
DX: K55.21 Angiodysplasia of colon with hemorrhage (principal); D62 Acute posthemorrhagic anemia; J96.11 Chronic respiratory failure with hypoxia; Z20.822 Contact with and (suspected) exposure to COVID-19; J44.9 Chronic obstructive pulmonary disease, unspecified; M10.9 Gout, unspecified; F32.9 Major depressive disorder, single episode, unspecified; K21.9 Gastro-esophageal reflux disease without esophagitis; F41.9 Anxiety disorder, unspecified; K59.00 Constipation, unspecified; K31.7 Polyp of stomach and duodenum; K63.5 Polyp of colon; K64.8 Other hemorrhoids; Z88.0 Allergy status to penicillin; Z99.81 Dependence on supplemental oxygen; Z88.3 Allergy status to other anti-infective agents; Z88.8 Allergy status to other drugs, medicaments and biological substances; Z98.890 Other specified postprocedural states; Z90.49 Acquired absence of other specified parts of digestive tract; Z86.010 Personal history of colon polyps; E78.5 Hyperlipidemia, unspecified; G62.9 Polyneuropathy, unspecified; R73.01 Impaired fasting glucose
CPT/HCPCS: 36415; 36430; 74177; 80048; 80053; 80061; 82274; 82306; 82607; 82728; 82746; 83036; 83540; 83550; 83735; 84100; 84443; 84550; 85014; 85018; 85025; 85049; 85610; 85730; 86850; 86870; 86880; 86900; 86901; 86905; 86922; 86971; 88305; 93005; 94640; 96374; C9113; J1200; J1940; J2704; J2916; J3010; J7050; J7120; J7620; P9054; Q9967; U0003; U0005